=== PATIENT | male | born 1960 | race Caucasian/White ===

== ENCOUNTER → 2021-04-29 | Day surgery (SDC) | payer OTHER ==
[2021-04-26 08:27] VITALS: BMI 29.9
[~2021-04-29] MED LIST: LACTATED RINGERS 1,000 ML IV SCH; LIDOCAINE 1% (10MG/ML) FOR IV START INTRADERMA ONE; LIDOCAINE 1% INJ 10MG/ML (20 ML MDV) ONE; PROPOFOL 10 MG/ML 20 ML VIAL IV ONE
[2021-04-29 09:51] VITALS: TEMP 98.5
--- NOTE | 2021-04-29 10:28 | P.GSHP ---
History of Present Illness H&P Date: 04/29/21 Chief Complaint: Diarrhea change in bowel habits This is a 61-year-old male who presents today for colonoscopy. And issues with diarrhea. Past Medical History Past Medical History: Hypertension History of Any Multi-Drug Resistant Organisms: None Reported Past Surgical History: No Surgical Hx Reported Additional Past Surgical History / Comment(s): colonoscopy Past Anesthesia/Blood Transfusion Reactions: No Reported Reaction Past Psychological History: No Psychological Hx Reported Smoking Status: Never smoker Past Alcohol Use History: None Reported Past Drug Use History: None Reported - Past Family History Brother(s) Family Medical History: Cancer Additional Family Medical History / Comment(s): colon cancer Medications and Allergies Home Medications Medication Instructions Recorded Confirmed Type Atorvastatin [Lipitor] 20 mg PO HS 04/26/21 04/29/21 History Olmesartan/Amlodipin/Hcthiazid 1 each PO HS 04/26/21 04/29/21 History [Olmesartan/Amlodipin/Hcthiazid 40-10-25 MG] Psyllium Husk (with Sugar) 1 dose PO DIRECTED 04/26/21 04/29/21 History [Metamucil Powder] Allergies Allergy/AdvReac Type Severity Reaction Status Date / Time No Known Allergies Allergy Verified 04/26/21 08:11 Surgical - Exam Vital Signs Temp Pulse Resp BP Pulse Ox 98.5 F 72 16 162/89 96 04/29/21 09:45 04/29/21 09:45 04/29/21 09:45 04/29/21 09:45 04/29/21 09:45 - General well developed, well nourished, no distress - Eyes PERRL - ENT normal pinna - Neck no masses - Respiratory normal expansion - Cardiovascular Rhythm: regular - Abdomen Abdomen: soft, non tender Assessment and Plan Assessment: History of diarrhea. We'll perform colonoscopy
--- NOTE | 2021-04-29 10:44 | P.OP ---
Date of Procedure: 04/29/21 Preoperative Diagnosis: Screening colonoscopy Postoperative Diagnosis: Diverticulosis Procedure(s) Performed: Colonoscopy Anesthesia: MAC Surgeon: Chandrakant Felder Pathology: none sent Condition: stable Disposition: PACU Description of Procedure: Patient's placed on the endoscopy table in the lateral position. He received IV sedation. Digital rectal exam was performed which revealed a few external hemorrhoids. Flexible colonoscope was then placed patient anus and passed throughout the entire colon. The ileocecal valve was visualized. The cecum, ascending and transverse colon appeared normal. In the descending and sigmoid colon there is moderate diverticular changes. Scope was then brought back the rectum and this appeared normal. Scope withdrawn for patient.
[2021-04-29 11:19] VITALS: BP 133/76; PULSE 66; RESP 16
== END ==
LOC: ORWHC2ENDO 08:54
PROVIDERS: ATTEND Surgery
DX: K57.90 Diverticulosis of intestine, part unspecified, without perforation or abscess without bleeding (principal); I10 Essential (primary) hypertension; Z79.899 Other long term (current) drug therapy
CPT/HCPCS: 45378; J2001; J2704